=== PATIENT | male | born 1955 | race American Indian/Alaskan Native ===

== ENCOUNTER 2019-04-20 19:58 | Inpatient (IN) | payer SELFPAY ==
[2019-04-20] MEDS ORDERED: fentaNYL 100 MCG/2 ML INJ IV ONE (21:31)
[2019-04-20] MEDS ORDERED: ONDANSETRON 4 MG/2 ML INJ IV ONE (21:31)
[2019-04-20] MEDS ORDERED: NITROGLYCERIN 2% OINT 1 GM TP ONE (21:31)
[2019-04-20] MEDS ORDERED: ASPIRIN 325 MG TAB PO ONE (21:32)
--- NOTE | 2019-04-20 21:35 | Emergency Department Report ---
HPI - General Chief Complaint: Chest Pain Time Seen by Provider: 04/20/19 21:20 - HPI HPI: Florentino 26 The pt is a 63 y/o M p/w a cc of CP. The pt states he has had intermittent L CP since 11:00am. Pt states the pain is sharp in nature. Pt denies sob, n/v or diaphoresis. Pt states his last stress test occurred years ago and he's never had a cath ED Past Medical Hx - Past Medical History Previous Medical History?: No - Surgical History Past Surgical History?: No - Social History Smoking Status: Never Smoker Substance Use Type: None (denies illicit drug use) ED Review of Systems ROS: Stated complaint: CHEST PAIN Other details as noted in HPI Constitutional: denies: diaphoresis Eyes: denies: eye pain ENT: denies: throat pain Respiratory: denies: shortness of breath Cardiovascular: chest pain Endocrine: no symptoms reported Gastrointestinal: denies: nausea, vomiting Genitourinary: denies: dysuria Musculoskeletal: denies: back pain Neurological: denies: headache Physical Exam - Physical Exam Vital Signs: Vital Signs 04/20/19 21:28 Pulse Rate 89 Respiratory 14 Rate Blood Pressure 133/73 [Left] O2 Sat by Pulse 100 Oximetry Physical Exam: GEN: WD WN M lying on stretcher in NAD HEENT: EOMI NECK: Trachea midline LUNGS: No resp Distress CV: RRR no m/r/g ABD: S/NT/ND SKIN: No Diaphoresis NEURO: GCS 15 MS: no evidence of acute injury ED Course Vital Signs 04/20/19 21:28 Pulse Rate 89 Respiratory 14 Rate Blood Pressure 133/73 [Left] O2 Sat by Pulse 100 Oximetry ED Medical Decision Making - Lab Data Result diagrams: 04/20/19 21:32 04/20/19 21:32 Laboratory Tests 04/20/19 04/20/19 04/20/19 21:32 21:32 21:32 WBC 7.5 RBC 4.89 Hgb 14.6 Hct 43.0 MCV 88 MCH 30 MCHC 34 RDW 13.4 Plt Count 176 Lymph % (Auto) 37.7 H [place] % (Auto) 9.6 H Eos % (Auto) 1.0 Baso % (Auto) 0.7 Lymph # 2.8 [place] # 0.7 Eos # 0.1 Baso # 0.1 Seg Neutrophils % 51.0 Seg Neutrophils # 3.8 PT 12.1 L INR 0.92 Sodium 141 Potassium 4.8 Chloride 101.5 Carbon Dioxide 26 Anion Gap 18 BUN 15 Creatinine 1.2 Estimated GFR > 60 BUN/Creatinine Ratio 13 Glucose 99 Calcium 9.3 CK-MB (CK-2) 3.3 Troponin T < 0.010 NT-Pro-B Natriuret Pep 158.3 - EKG Data -: EKG Interpreted by Me EKG shows normal: sinus rhythm Rate: normal - EKG Data When compared to previous EKG there are: previous EKG unavailable Interpretation: other (no ischemic changes seen) - Radiology Data Radiology results: report reviewed (CXR), image reviewed (CXR) interpreted by me: CXR- no focal infil/ no ptx [facility] [address] [place] [address] XRay Report Signed Patient: WYATT VORA MR#: [id number] : 1955 Acct:[id number] Age/Sex: 63 / M ADM Date: 04/20/19 Loc: ED Attending Dr: Ordering Physician: VIV MATHUR MD Date of Service: 04/20/19 Procedure(s): XR chest routine 2V Accession Number(s): [id number] cc: VIV MATHUR MD Fluoro Time In Minutes: CHEST 2 VIEWS INDICATION: CP. COMPARISON: None. FINDINGS: Support devices: None. Heart: Within normal limits. Lungs/Pleura: No acute air space or interstitial disease. No significant pleural effusion. IMPRESSION: No acute findings. Signer Name: Robert Pacheco MD Signed: 04/20/2019 9:57 PM Workstation Name: [id number] Transcribed By: ES Dictated By: Robert Pacheco MD Electronically Authenticated By: Robert Pacheco MD Signed Date/Time: 04/20/192156 DD/ 55 TD/TT: - Differential Diagnosis acs, pericarditis, gerd, costochondritis Critical care attestation.: If time is entered above; I have spent that time in minutes in the direct care of this critically ill patient, excluding procedure time. ED Disposition Clinical Impression: Chest pain Disposition: OP ADMIT IP TO THIS HOSP Is pt being admited?: Yes Does the pt Need Aspirin: Yes Condition: Fair Instructions: Chest Pain (ED) Time of Disposition: 22:11 (hospitalist paged (Dr Monge))
[2019-04-20 21:43] LABS: Basophils # (Auto) 0.1 K/mm3 (0.0-0.1); Basophils % (Auto) 0.7 % (0.0-1.8); Eosinophils # (Auto) 0.1 K/mm3 (0.0-0.4); Hemoglobin 14.6 gm/dl (11.8-15.2); Lymphocytes # (Auto) 2.8 K/mm3 (1.2-5.4); Lymphocytes % (Auto) 37.7 % (13.4-35.0); Mean Corpuscular HGB Conc 34 % (32-34); Mean Corpuscular Volume 88 fl (84-94); Monocytes # (Auto) 0.7 K/mm3 (0.0-0.8); Monocytes % (Auto) 9.6 % (0.0-7.3); Platelet Count 176 K/mm3 (140-440); Red Blood Count 4.89 M/mm3 (3.65-5.03); Red Cell Distribution Width 13.4 % (13.2-15.2)
[2019-04-20 21:53] LABS: INR 0.92 (0.87-1.13)
--- NOTE | 2019-04-20 22:01 | XRay Report ---
CHEST 2 VIEWS INDICATION: CP. COMPARISON: None. FINDINGS: Support devices: None. Heart: Within normal limits. Lungs/Pleura: No acute air space or interstitial disease. No significant pleural effusion. IMPRESSION: No acute findings. Signer Name: Robert Pacheco MD Signed: 04/20/2019 9:57 PM Workstation Name: [id number]
[2019-04-20 22:06] LABS: BUN/Creatinine Ratio 13; Blood Urea Nitrogen 15 mg/dL (9-20); Calcium 9.3 mg/dL (8.4-10.2); Hemolysis Index 14
[2019-04-20 22:08] LABS: Creatine Kinase MB 3.3 ng/mL (0.0-4.0)
[2019-04-20] MEDS ORDERED: ALBUTEROL 2.5 MG/3 ML NEBU IH PRN (22:42)
[2019-04-20] MEDS ORDERED: MORPHINE 2 MG/1 ML INJ IV PRN (22:42)
[2019-04-20] MEDS ORDERED: HYDROmorphone 1 MG/1 ML INJ IV PRN (22:42)
[2019-04-20] MEDS ORDERED: ACETAMINOPHEN 325 MG TAB PO PRN (22:42)
[2019-04-20] MEDS ORDERED: ONDANSETRON 4 MG/2 ML INJ IV PRN (22:42)
[2019-04-20] MEDS ORDERED: NITROGLYCERIN 0.4 MG TAB SUBL SL PRN (22:46)
--- NOTE | 2019-04-20 22:51 | History and Physical Report ---
<YEHADLEY Jay - Last Filed: 04/20/19 23:30> History of Present Illness Date of examination: 04/20/19 Date of admission: 04/20/2019 Chief complaint: chest pain History of present illness: 63-year-old -Welsh male with no significant past medical history presents to [facility] ED with complaints of nonradiating left-sided chest pain. Patient states that he started experiencing nonradiating left-sided chest pain early this morning shortly after getting out of bed. At first he thought it was gas and admits to eating large amount of watermelon to help him to burp. The pain continued throughout the day varying in intensity from 4/10-8/10. History of sciatica, and for further evaluation. Patient states that he has not seen a medical provider and 4 years. He admits to having similar chest pain in the past and received cardiac workup at a facility in [place]. The workup included included stress test, and he states that the results were negative. Patient admits to living a healthy lifestyle denies drinking and smoking. He is very active and works out approximately 5-6 days a week. Denies: n/v/d, headache, fever, cough, hemoptysis, hematemesis or visual disturbances Past History Past Surgical History: No surgical history Social history: , Lives alone Family history: no significant family history Medications and Allergies Allergies Allergy/AdvReac Type Severity Reaction Status Date / Time Penicillins Allergy Rash Verified 04/20/19 20:02 Home Medications Medication Instructions Recorded Confirmed Last Taken Type No Known Home Medications [No 04/20/19 04/20/19 Unknown History Reported Home Medications] Review of Systems All systems: negative Cardiovascular: chest pain (nonradiating) Exam - Physical Exam Narrative exam: Physical exam General appearance: Present: No acute distress, alert and oriented 3, well developed, pleasant, adult -Welsh male - EENT Eyes: Present: PERRL, EOM intact, ENT: hearing intact, normal dentition - Neck Neck: Present: supple, normal ROM - Respiratory Respiratory effort: Non-labored Respiratory: CTA - Cardiovascular Heart rate: 78 (bpm) Rhythm: SR, right atrial enlargement Heart Sounds: Present: S1, S2 - Extremities Extremities: no ischemia, pulses intact - Peripheral Assessment Peripheral Pulses: within normal limits - Abdominal General gastrointestinal: soft, non-tender, normal bowel sounds - Integumentary Integumentary: Present: warm, dry, - Musculoskeletal Musculoskeletal: Able to move all extremities, normal gait -Neurological Neurological: CN II-XII grossly intact - Psychiatric Psychiatric: cooperative - Constitutional Vitals: Temp Pulse Resp BP Pulse Ox 89 14 133/73 100 04/20/19 22:23 04/20/19 21:28 04/20/19 22:23 04/20/19 21:28 Results - Labs CBC & Chem 7: 04/20/19 22:59 04/20/19 21:32 Labs: Laboratory Last Values WBC 7.5 K/mm3 (4.5-11.0) 04/20/19 21:32 RBC 4.89 M/mm3 (3.65-5.03) 04/20/19 21:32 Hgb 14.6 gm/dl (11.8-15.2) 04/20/19 21:32 Hct 43.0 % (35.5-45.6) 04/20/19 21:32 MCV 88 fl (84-94) 04/20/19 21:32 MCH 30 pg (28-32) 04/20/19 21:32 MCHC 34 % (32-34) 04/20/19 21:32 RDW 13.4 % (13.2-15.2) 04/20/19 21:32 Plt Count 176 K/mm3 (140-440) 04/20/19 21:32 Lymph % (Auto) 37.7 % (13.4-35.0) H 04/20/19 21:32 Heard % (Auto) 9.6 % (0.0-7.3) H 04/20/19 21:32 Eos % (Auto) 1.0 % (0.0-4.3) 04/20/19 21:32 Baso % (Auto) 0.7 % (0.0-1.8) 04/20/19 21:32 Lymph # 2.8 K/mm3 (1.2-5.4) 04/20/19 21:32 Heard # 0.7 K/mm3 (0.0-0.8) 04/20/19 21:32 Eos # 0.1 K/mm3 (0.0-0.4) 04/20/19 21:32 Baso # 0.1 K/mm3 (0.0-0.1) 04/20/19 21:32 Seg Neutrophils % 51.0 % (40.0-70.0) 04/20/19 21:32 Seg Neutrophils # 3.8 K/mm3 (1.8-7.7) 04/20/19 21:32 PT 12.1 Sec. (12.2-14.9) L 04/20/19 21:32 INR 0.92 (0.87-1.13) 04/20/19 21:32 Sodium 141 mmol/L (137-145) 04/20/19 21:32 Potassium 4.8 mmol/L (3.6-5.0) 04/20/19 21:32 Chloride 101.5 mmol/L (98-107) 04/20/19 21:32 Carbon Dioxide 26 mmol/L (22-30) 04/20/19 21:32 Anion Gap 18 mmol/L 04/20/19 21:32 BUN 15 mg/dL (9-20) 04/20/19 21:32 Creatinine 1.2 mg/dL (0.8-1.5) 04/20/19 21:32 Estimated GFR > 60 ml/min 04/20/19 21:32 BUN/Creatinine Ratio 13 % 04/20/19 21:32 Glucose 99 mg/dL (75-100) 04/20/19 21:32 Calcium 9.3 mg/dL (8.4-10.2) 04/20/19 21:32 CK-MB (CK-2) 3.3 ng/mL (0.0-4.0) 04/20/19 21:32 Troponin T < 0.010 ng/mL (0.00-0.029) 04/20/19 21:32 NT-Pro-B Natriuret Pep 158.3 pg/mL (0-900) 04/20/19 21:32 - Imaging and Cardiology Imaging and Cardiology: CXR: FINDINGS: Support devices: None. Heart: Within normal limits. Lungs/Pleura: No acute air space or interstitial disease. No significant pleural effusion. IMPRESSION: No acute findings. Assessment and Plan Assessment and plan: 63-year-old -Welsh male with no significant past medical history presents to [facility] ED with complaints of nonradiating left-sided chest pain. Patient states that he started experiencing nonradiating left-sided. Acute Chest Pain R/O ACS -Initiate chest pain protocol -Continuous telemetry monitoring -Continue supportive care -Pain mgmt -Echo pending -Troponin negative x 1, will continue to trend -On ASA and Statin -Lipid panel pending -Will defer stress testing to cardiology -Cardiology consult pending DVT PPX -on Lovenox Advance Directives: No VTE prophylaxis?: Chemical Plan of care discussed with patient/family: Yes <RAMA JOHANSEN - Last Filed: 04/21/19 04:36> History of Present Illness Date of admission: 04/20/19 22:42 Medications and Allergies Active Meds: Active Medications Acetaminophen (Tylenol) 650 mg PO Q4H PRN PRN Reason: Pain MILD(1-3)/Fever >100.5/IBARRA Albuterol (Proventil) 2.5 mg IH Q3HRT PRN PRN Reason: Shortness Of Breath Aspirin (Baby Aspirin) 81 mg PO QDAY CORRINE Atorvastatin Calcium (Lipitor) 40 mg PO QHS CORRINE Enoxaparin Sodium (Lovenox) 40 mg SUB-Q QDAY CORRINE Hydromorphone HCl (Dilaudid) 0.5 mg IV Q3H PRN PRN Reason: Pain , Severe (7-10) Morphine Sulfate (Morphine) 2 mg IV Q4H PRN PRN Reason: Pain, Moderate (4-6) Nitroglycerin (Nitrostat) 0.4 mg SL Q5M PRN PRN Reason: Chest Pain Ondansetron HCl (Zofran) 4 mg IV Q6H PRN PRN Reason: Nausea And Vomiting Sodium Chloride (Sodium Chloride Flush Syringe 10 Ml) 10 ml IV BID CORRINE Sodium Chloride (Sodium Chloride Flush Syringe 10 Ml) 10 ml IV PRN PRN PRN Reason: LINE FLUSH Exam - Constitutional Vitals: Temp Pulse Resp BP Pulse Ox 97.7 F 71 18 143/77 98 04/21/19 00:15 04/21/19 00:52 04/21/19 00:52 04/21/19 00:15 04/21/19 00:52 Results - Labs CBC & Chem 7: 04/20/19 22:59 04/20/19 22:59 Labs: Laboratory Last Values WBC 7.3 K/mm3 (4.5-11.0) 04/20/19 22:59 RBC 4.73 M/mm3 (3.65-5.03) 04/20/19 22:59 Hgb 14.1 gm/dl (11.8-15.2) 04/20/19 22:59 Hct 41.1 % (35.5-45.6) 04/20/19 22:59 MCV 87 fl (84-94) 04/20/19 22:59 MCH 30 pg (28-32) 04/20/19 22:59 MCHC 34 % (32-34) 04/20/19 22:59 RDW 13.6 % (13.2-15.2) 04/20/19 22:59 Plt Count 167 K/mm3 (140-440) 04/20/19 22:59 Lymph % (Auto) 40.1 % (13.4-35.0) H 04/20/19 22:59 Heard % (Auto) 9.4 % (0.0-7.3) H 04/20/19 22:59 Eos % (Auto) 1.3 % (0.0-4.3) 04/20/19 22:59 Baso % (Auto) 0.6 % (0.0-1.8) 04/20/19 22:59 Lymph # 2.9 K/mm3 (1.2-5.4) 04/20/19 22:59 Heard # 0.7 K/mm3 (0.0-0.8) 04/20/19 22:59 Eos # 0.1 K/mm3 (0.0-0.4) 04/20/19 22:59 Baso # 0.0 K/mm3 (0.0-0.1) 04/20/19 22:59 Seg Neutrophils % 48.6 % (40.0-70.0) 04/20/19 22:59 Seg Neutrophils # 3.6 K/mm3 (1.8-7.7) 04/20/19 22:59 PT 12.1 Sec. (12.2-14.9) L 04/20/19 21:32 INR 0.92 (0.87-1.13) 04/20/19 21:32 Sodium 139 mmol/L (137-145) 04/20/19 22:59 Potassium 5.1 mmol/L (3.6-5.0) H 04/20/19 22:59 Chloride 102.5 mmol/L (98-107) 04/20/19 22:59 Carbon Dioxide 29 mmol/L (22-30) 04/20/19 22:59 Anion Gap 13 mmol/L 04/20/19 22:59 BUN 15 mg/dL (9-20) 04/20/19 22:59 Creatinine 1.2 mg/dL (0.8-1.5) 04/20/19 22:59 Estimated GFR > 60 ml/min 04/20/19 22:59 BUN/Creatinine Ratio 13 % 04/20/19 22:59 Glucose 103 mg/dL (75-100) H 04/20/19 22:59 Hemoglobin A1c 6.0 % (4-6) 04/20/19 22:59 Calcium 8.9 mg/dL (8.4-10.2) 04/20/19 22:59 Total Creatine Kinase 315 units/L (55-170) H 04/20/19 21:32 CK-MB (CK-2) 3.3 ng/mL (0.0-4.0) 04/20/19 21:32 CK-MB (CK-2) Rel Index 1.0 (0-4) 04/20/19 21:32 Troponin T < 0.010 ng/mL (0.00-0.029) 04/21/19 01:22 NT-Pro-B Natriuret Pep 158.3 pg/mL (0-900) 04/20/19 21:32 Triglycerides 310 mg/dL (2-149) H 04/20/19 22:59 Cholesterol 242 mg/dL (50-199) H 04/20/19 22:59 LDL Cholesterol Direct 172 mg/dL (50-130) H 04/20/19 22:59 HDL Cholesterol 42 mg/dL (40-59) 04/20/19 22:59 Cholesterol/HDL Ratio 5.76 % 04/20/19 22:59 Assessment and Plan Assessment and plan: I personally discussed the pt with the REHABILITATION PROGRAM COORDINATOR-C, I agree with the above assessment and plan
[2019-04-20 23:13] LABS: Basophils % (Auto) 0.6 % (0.0-1.8); Eosinophils # (Auto) 0.1 K/mm3 (0.0-0.4); Eosinophils % (Auto) 1.3 % (0.0-4.3); Hematocrit 41.1 % (35.5-45.6); Hemoglobin 14.1 gm/dl (11.8-15.2); Lymphocytes # (Auto) 2.9 K/mm3 (1.2-5.4); Lymphocytes % (Auto) 40.1 % (13.4-35.0); Mean Corpuscular HGB Conc 34 % (32-34); Mean Corpuscular Volume 87 fl (84-94); Monocytes # (Auto) 0.7 K/mm3 (0.0-0.8); Monocytes % (Auto) 9.4 % (0.0-7.3); Red Blood Count 4.73 M/mm3 (3.65-5.03); Red Cell Distribution Width 13.6 % (13.2-15.2)
[2019-04-20 23:18] LABS: Platelet Count 167 K/mm3 (140-440)
[2019-04-20 23:33] LABS: BUN/Creatinine Ratio 13; Blood Urea Nitrogen 15 mg/dL (9-20); Calcium 8.9 mg/dL (8.4-10.2); Hemolysis Index 6
[2019-04-20 23:43] LABS: Chol/HDL Ratio 5.76 %
[2019-04-21 05:16] LABS: Basophils % (Auto) 0.4 % (0.0-1.8); Eosinophils # (Auto) 0.1 K/mm3 (0.0-0.4); Eosinophils % (Auto) 1.2 % (0.0-4.3); Hematocrit 40.1 % (35.5-45.6); Hemoglobin 13.6 gm/dl (11.8-15.2); Lymphocytes # (Auto) 3.4 K/mm3 (1.2-5.4); Lymphocytes % (Auto) 45.4 % (13.4-35.0); Mean Corpuscular HGB Conc 34 % (32-34); Mean Corpuscular Volume 88 fl (84-94); Monocytes # (Auto) 0.7 K/mm3 (0.0-0.8); Monocytes % (Auto) 8.9 % (0.0-7.3); Platelet Count 157 K/mm3 (140-440); Red Blood Count 4.57 M/mm3 (3.65-5.03); Red Cell Distribution Width 13.3 % (13.2-15.2)
[2019-04-21 05:43] LABS: BUN/Creatinine Ratio 14; Blood Urea Nitrogen 15 mg/dL (9-20); Calcium 8.6 mg/dL (8.4-10.2); Hemolysis Index 4
--- NOTE | 2019-04-21 09:40 | Consultation ---
History of Present Illness Consult date: 04/21/19 Requesting physician: HADLEY YE Consult reason: chest pain History of present illness: The pt is a 63-year-old male with no significant past medical history who presented with complaints of chest pain since approx 11AM yesterday. He states he first noted the pain when he was at home getting ready to go to work. He was driving to work when he noted the pain again. He describes the pain a a left- sided chest pain which radiates into his left shoulder. He first thought his pain was secondary to indigestion, he ate some watermelon with no relief and then decided to seek medical attention. The pain resolved after receiving Tylenol after admission. He denies any SOB, palpitations, n/v, diaphoresis, dizziness or syncope. He reports one additional occurrence of nonradiating left- sided chest pain approx 5 years ago. At that time he was evaluated with stress test in [place] and was told the test was normal. Pt denies any prior cardiac issues, including CAD, AMI, HF or arrhythmia. Past History Past Medical History: hypertension Past Surgical History: No surgical history Social history: , Lives alone Family history: no significant family history Medications and Allergies Allergies Allergy/AdvReac Type Severity Reaction Status Date / Time Penicillins Allergy Rash Verified 04/20/19 20:02 Home Medications Medication Instructions Recorded Confirmed Last Taken Type No Known Home Medications [No 04/20/19 04/20/19 Unknown History Reported Home Medications] Active Meds: Active Medications Acetaminophen (Tylenol) 650 mg PO Q4H PRN PRN Reason: Pain MILD(1-3)/Fever >100.5/IBARRA Albuterol (Proventil) 2.5 mg IH Q3HRT PRN PRN Reason: Shortness Of Breath Aspirin (Baby Aspirin) 81 mg PO QDAY CORRINE Atorvastatin Calcium (Lipitor) 40 mg PO QHS CORRINE Enoxaparin Sodium (Lovenox) 40 mg SUB-Q QDAY CORRINE Hydromorphone HCl (Dilaudid) 0.5 mg IV Q3H PRN PRN Reason: Pain , Severe (7-10) Morphine Sulfate (Morphine) 2 mg IV Q4H PRN PRN Reason: Pain, Moderate (4-6) Nitroglycerin (Nitrostat) 0.4 mg SL Q5M PRN PRN Reason: Chest Pain Ondansetron HCl (Zofran) 4 mg IV Q6H PRN PRN Reason: Nausea And Vomiting Sodium Chloride (Sodium Chloride Flush Syringe 10 Ml) 10 ml IV BID CORRINE Sodium Chloride (Sodium Chloride Flush Syringe 10 Ml) 10 ml IV PRN PRN PRN Reason: LINE FLUSH Review of Systems Constitutional: no weight loss, no weight gain, no fever, no chills, no sweats Ears, nose, mouth and throat: no ear pain, no nose pain, no sinus pressure, no sinus pain Cardiovascular: chest pain, no orthopnea, no palpitations, no rapid/irregular heart beat, no edema, no syncope, no lightheadedness, no shortness of breath, no dyspnea on exertion, no high blood pressure, no leg edema, no decreased exercise tolerance Respiratory: no cough, no shortness of breath, no dyspnea on exertion, no congestion, no wheezing, no pain on inspiration Gastrointestinal: no abdominal pain, no nausea, no vomiting, no diarrhea, no constipation, no change in bowel habits Genitourinary Male: no flank pain, no discharge, no urinary frequency, no urinary hesitancy Musculoskeletal: no neck stiffness, no neck pain, no shooting arm pain, no arm numbness/tingling, no low back pain, no shooting leg pain Integumentary: no rash, no pruritis, no redness, no sores, no wounds Neurological: no head injury, no paralysis, no weakness, no parathesias, no numbness, no tingling, no seizures, no syncope Psychiatric: no anxiety Endocrine: no cold intolerance, no heat intolerance Hematologic/Lymphatic: no easy bruising, no easy bleeding Allergic/Immunologic: no urticaria, no wheezing Physical Examination Vital Signs Pulse Resp BP Pulse Ox 89 14 133/73 100 04/20/19 21:28 04/20/19 21:28 04/20/19 21:28 04/20/19 21:28 General appearance: no acute distress HEENT: Positive: PERRL, Normocephaly, Mucus Membranes Moist Neck: Positive: neck supple, trachea midline Cardiac: Positive: Reg Rate and Rhythm, S1/S2 Lungs: Positive: Decreased Breath Sounds Neuro: Positive: Grossly Intact Abdomen: Negative: Tender Skin: Negative: Rash Musculoskeletal: No Pain Extremities: Absent: edema Results 04/21/19 04:29 04/21/19 04:29 Cardiac Enzymes 04/20/19 Range/Units 21:32 CK-MB (CK-2) 3.3 (0.0-4.0) ng/mL Coagulation 04/20/19 Range/Units 21:32 PT 12.1 L (12.2-14.9) Sec. INR 0.92 (0.87-1.13) Lipids 04/20/19 Range/Units 22:59 Triglycerides 310 H (2-149) mg/dL Cholesterol 242 H (50-199) mg/dL HDL Cholesterol 42 (40-59) mg/dL Cholesterol/HDL Ratio 5.76 % CBC 04/20/19 04/20/19 04/21/19 Range/Units 21:32 22:59 04:29 WBC 7.5 7.3 7.5 (4.5-11.0) K/mm3 RBC 4.89 4.73 4.57 (3.65-5.03) M/mm3 Hgb 14.6 14.1 13.6 (11.8-15.2) gm/dl Hct 43.0 41.1 40.1 (35.5-45.6) % Plt Count 176 167 157 (140-440) K/mm3 Lymph # 2.8 2.9 3.4 (1.2-5.4) K/mm3 Wise # 0.7 0.7 0.7 (0.0-0.8) K/mm3 Eos # 0.1 0.1 0.1 (0.0-0.4) K/mm3 Baso # 0.1 0.0 0.0 (0.0-0.1) K/mm3 Comprehensive Metabolic Panel 04/20/19 04/20/19 04/21/19 Range/Units 21:32 22:59 04:29 Sodium 141 139 140 (137-145) mmol/L Potassium 4.8 5.1 H 4.4 (3.6-5.0) mmol/L Chloride 101.5 102.5 102.6 (98-107) mmol/L Carbon Dioxide 26 29 27 (22-30) mmol/L BUN 15 15 15 (9-20) mg/dL Creatinine 1.2 1.2 1.1 (0.8-1.5) mg/dL Glucose 99 103 H 108 H (75-100) mg/dL Calcium 9.3 8.9 8.6 (8.4-10.2) mg/dL - Imaging and Cardiology Echo: pending EKG: report reviewed, image reviewed EKG interpretations - Telemetry EKG Rhythm: Sinus Rhythm - EKG Sinus rhythms and dysrhythmias: sinus rhythm Chamber hypertrophy or enlargement: left ventricular hypertro Assessment and Plan Chest pain Currently resolved. AMI ruled out. S/p lexiscan MPI stress test this AM which was negative. Echo reviewed - EF 50-55%, no significant abnormalities. Hyperlipidemia / hypertriglyceridemia New diagnoses. Lipitor initiated per primary team. Currently stable cardiac status. Pt may discharge home from cardiology standpoint. Recommend follow up in our office with Dr. Ambriz within 1-2 weeks ([phone]). The patient has been seen in conjunction with Dr. Ambriz who agrees with the assessment and plan of care.
[2019-04-21] MEDS ORDERED: ENOXAPARIN 40 MG/0.4 ML INJ SUB-Q SCH (10:00)
[2019-04-21] MEDS ORDERED: ASPIRIN 81 MG TAB CHEW PO SCH (10:00)
[2019-04-21] MEDS ORDERED: REGADENOSON 0.4 MG/5 ML INJ IV ONE ×2 (11:07→12:00)
[2019-04-21 13:14] VITALS: BP 135/77
--- NOTE | 2019-04-21 15:25 | Discharge Summary ---
Providers - Providers Date of Admission: 04/20/19 22:42 Date of discharge: 04/21/19 Attending physician: JB CRUZ 04/20/19 Consult to Cardiac Rehabilitation [CONS] Routine Reason For Exam: Phase I 04/20/19 22:42 Consult to Physician [CONS] Routine Comment: Consulting Provider: DELFINO BHATTI Physician Instructions: Reason For Exam: chest pain Primary care physician: GRAFFITI CLEANER Hospitalization Condition: Stable Pertinent studies: CXR Exercise stress test 2d echo Hospital course: 63-year-old -Romanian male with no significant past medical history presents to [facility] ED with complaints of nonradiating left-sided chest pain. Patient states that he started experiencing nonradiating left-sided. Patient was evaluated in the ER, initial cardiac enzyme and EKG was unremarkable, chest x-ray showed no infiltrates. Patient was admitted and underwent myocardial stress test which was normal. Patient was then discharged home with PPI in stable condition with outpatient follow-up. Discharge diagnosis: Chest pain, ruled out ACS, likely GERD Disposition: - TO HOME OR SELFCARE Time spent for discharge: 34 minutes Core Measure Documentation - Palliative Care Palliative Care/ Comfort Measures: Not Applicable - Core Measures Any of the following diagnoses?: none Exam - Constitutional Vitals: Temp Pulse Resp BP Pulse Ox 97.6 F 63 18 135/77 96 04/21/19 13:06 04/21/19 12:00 04/21/19 13:06 04/21/19 13:06 04/21/19 12:00 General appearance: Present: no acute distress, well-nourished - EENT Eyes: Present: PERRL ENT: hearing intact, clear oral mucosa - Neck Neck: Present: supple, normal ROM - Respiratory Respiratory effort: normal Respiratory: bilateral: CTA - Cardiovascular Heart Sounds: Present: S1 & S2. Absent: rub, click - Extremities Extremities: pulses symmetrical, No edema Peripheral Pulses: within normal limits - Abdominal General gastrointestinal: Present: soft, non-tender, non-distended, normal bowel sounds - Integumentary Integumentary: Present: clear, warm, dry - Musculoskeletal Musculoskeletal: gait normal, strength equal bilaterally - Psychiatric Psychiatric: appropriate mood/affect, intact judgment & insight - Neurologic Neurologic: CNII-XII intact, moves all extremities Plan Activity: advance as tolerated Weight Bearing Status: Weight Bear as Tolerated Diet: low fat, low salt Follow up with: PRIMARY CARE, [Primary Care Provider] - 7 Days NAKUL CERRATO MD [Staff Physician] - 7 Days Prescriptions: Pantoprazole [Protonix] 40 mg PO QDAY #30 tablet
--- NOTE | 2019-04-22 03:54 | Treadmill Report ---
NUCLEAR STRESS TEST REFERRING PHYSICIAN: Hospitalist service. PROTOCOL: The patient was brought to the stress lab in a postabsorptive state, given 10 mCi of technetium-99m at rest. The patient underwent rest imaging. The patient underwent Lexiscan stress test per standard protocol. At peak stress, the patient was given 26 mCi of technetium 99m. Shortly thereafter, the patient underwent stress imaging. Raw imaging reveals mild GI artifact, no significant motion artifact. SPECT imaging examined carefully in horizontal long axis, vertical long axis, and short axis views. There is normal homogenous uptake of radioisotope in all reported segments. No evidence of significant fixed or reversible perfusion defects suggestive of prior infarction or ischemia. Gated wall motion reveals normal systolic thickening, calculated ejection fraction of 60%. No TID. CONCLUSIONS: 1. Normal myocardial perfusion scan without evidence of active ischemia or prior infarction. 2. Normal left ventricular systolic performance without evidence of transient ischemic dilatation or stress-induced segmental wall motion abnormalities. JOB# [id number] AKASH/OUSMANE
== END 2019-04-21 18:54 | disposition home or self-care (01) | DRG 392 ==
LOC: ED 19:58 → 4A 22:42
PROVIDERS: ADMIT Internal Medicine; ATTEND Internal Medicine
DX: K21.9 Gastro-esophageal reflux disease without esophagitis (principal); Z60.2 Problems related to living alone; I10 Essential (primary) hypertension; E78.00 Pure hypercholesterolemia, unspecified; Z88.0 Allergy status to penicillin
CPT/HCPCS: 36415; 71046; 78452; 80048; 80061; 82550; 82553; 83036; 83880; 84484; 85025; 85610; 93005; 93010; 93017; 93306; G0378; A9502; J1650; J2405; J2785; J3010